=== PATIENT | male | born 1950 | race Hispanic/Latino ===

== ENCOUNTER → 2020-06-25 | Outpatient (CLI) | payer OTHER | END | disposition home or self-care (01) | LOC: OIH 17:16 | PROVIDERS: ATTEND Internal Medicine Cardiovascular Disease | DX: Z13.6 Encounter for screening for cardiovascular disorders (principal) | CPT/HCPCS: 75571 ==

== ENCOUNTER → 2020-07-15 | Outpatient (CLI) | payer MEDICARE, OTHER | END | disposition home or self-care (01) | LOC: SHCH 15:52 → EDUNIT# 16:00 | PROVIDERS: ATTEND Internal Medicine Cardiovascular Disease | DX: I10 Essential (primary) hypertension (principal) | CPT/HCPCS: 93306; 93356 ==